=== PATIENT | female | born 1990 | race African-American/Black ===

== ENCOUNTER 2016-11-29 20:41 | Inpatient (IN) | payer OTHER ==
[~2016-11-29] VITALS: Ht 165.1 cm; Wt 69.4 kg
[2016-11-29] MEDS ORDERED: Lactated Ringer's 1,000 ML IV PRN (21:16)
[2016-11-29] MEDS ORDERED: Oxytocin 10 Unit/mL Inj IM PRN ×3 (21:20→22:55)
[2016-11-29] MEDS ORDERED: Ondansetron 2 mg/mL 2 mL Inj IVPUSH PRN (21:20)
[2016-11-29] MEDS ORDERED: Hemorrhage Kit, Post Partum XX ONE ×3 (21:20→22:55)
[2016-11-29] MEDS ORDERED: Methylergonovine 0.2 mg/mL Inj IM PRN ×2 (21:20→22:40)
[2016-11-29] MEDS ORDERED: Sodium Chloride LOK Flush 10 mL Syringe IVFLUSH PRN (21:20)
[2016-11-29] MEDS ORDERED: Penicillin G K Inj 5,000,000 UNITS in Dextrose 5% Minibag Plus 100 ML IV ONE (21:20)
[2016-11-29] MEDS ORDERED: Carboprost 250 mCg/mL Inj IM PRN ×2 (21:20→22:40)
[2016-11-29] MEDS ORDERED: Oxytocin 30 Units/500 mL LR 30 UNITS in IV Premix 1 EACH IV PRN ×2 (21:20→22:40)
--- NOTE | 2016-11-29 21:28 | PCM.HPOB ---
Subjective Date of Service: Nov 29, 2016 Referring Provider: Admitting Physician: Thanh Michaud MD Primary Care Physician: Miriam Toscano MD Attending Physician: Thanh Michaud MD Chief Complaint Active labor at 38 weeks and 4 day History of Present History of Present Illness Patient is a 26 y.o. F at 38 wk 4 days YADI 12/09/16 by LMP 03/04/16, US YADI 12/05/16 Presents to [facility] in active labor noted to be 5 cm, membranes intact GBS positive. complicated with sickle; cell trait, anemia in , fainting spells, GBS positive. Due to patient sabianist request female provider , patient acknowledged and understood this is not possible tonight and requests interaction kept to only as necessary. Upon admit patient noted to have contractions every 2-5 minutes with pain, membranes not ruptured, complained of active nausea. Patient denies fever, chills, shortness of breath, chest pain. Past Medical History Obstetrical History: first miscarriage 11/2012 Second 04/09/15 delivered at 39 weeks complicated by anemia in Gynecologic History: Last pap 2014 negative h/o BV no history of STI Medical History: Sickle cell trait anemia GBS postive Vit D defficiency chronic dizziness anxiety Surgical History: None reported Social History: lives with and child Hx Tobacco Use: No Hx Alcohol Use: No Hx Substance Use: No Past Family History Living Arrangement: with Family Review of Systems Constitutional: Y: Dizziness, Change of appitite, Chills, Fever Eyes: Denies: Blurred Vision, Conjunctive Inflammation, Double Vision ENT: Denies: Ear Pain Cardiovascular: Denies: Chest Pain, Edema, Orthopnea, Palpitations Respiratory: Denies: Cough, Cough with bloody sputum, Pleuritic Chest Pain Gastrointestinal: Reports: Nausea, Vomiting, Denies: Abdominal Pain, Epigastric pain, Heartburn Genitourinary: Denies: Dysuria, Hematuria Musculoskeletal: Denies: Redness, Swelling Skin/Breasts: Denies: Bruising, Discharge, Dry or Flakiness Skin: Denies: Bruising, Jaundice Neurological: Reports: Dizziness, Denies: Change in Speech, Confusion Psychologic: Denies: Agitation, Anxious, Apprehensive Medications Home medications vitamin vitamin D3 59154 unit per week Vitamin C Cephalexin for UIT in Ferrous sulfate 325 mg Promethazine 25 mg Allergy Coded Allergies: No Known Allergies (Unverified , 11/29/16) Exam Vital Signs HR 94 BP 132/76 Exam FHR 135 Category I tracing, moderate variability, acceptations present, reactive strip Vertex position reported by nursing Constitutional: Well-developed, Well-nourished HEENT: Atraumatic, PERRLA, EOMI Lungs: Clear to Auscultation, Normal Air Movement Heart: Regular Rate/Rhythm, Normal S1, Normal S2 Abdomen: Gravid (consistent with gestational age) Extremities: Pulses Palpable x4, Warm Neurological/Psychiatric: Alert, Oriented X3, Cooperative Labs/Diagnostics Ultra Sound US 11/14/16 FINDINGS: General: A single living intrauterine gestation is present. Presentation: Vertex. Placenta: Placental position is anterior towards maternal right, without previa. OB-EMBEDDED FIRMWARE ENGINEER Ultrasound Procedure Report Summary Fetus Summary Estimated Gestational Age from first dating scan: 37 weeks, 0 days Estimated Gestational Age from present scan: 36 weeks, 1 day Estimated Weight (EFW): 2805 g EFW percentile rank: 28 % Heart Rate: 129 bpm Findings(Amniotic Sac) Amniotic Fluid Index: 18.60 cm Biometry BiometryGroup Biparietal Diameter (Mean): 8.80 cm Gestational Age (BPD): 35 weeks, 4 days Head Circumference (Mean): 32.61 cm Gestational Age (HC): 37 weeks, 0 days Abdominal Circumference (Mean): 31.51 cm Gestational Age (AC): 35 weeks, 3 days Femur Length (Mean): 7.15 cm Gestational Age (FL): 36 weeks, 4 days Pelvis and Uterus Cervix Length: Not sufficiently well seen to measure Measurement variability in biometric dating: +/- 7 days from 14 weeks to 15 weeks 6 days gestation, +/- 10 days from 16 weeks to 21 weeks 6 days gestation, +/- 2 weeks from 22 weeks to 27 weeks 6 days gestation, +/- 3 weeks for 28 weeks gestation or later. Other: Not applicable. IMPRESSION: 1. growth at the 20th percentile, 2805 g. 2. Amniotic fluid index 18.6 cm. Dictated by: Albaro Streeter M.D. on 11/14/2016 at 11:30 Approved by: Albaro Streeter M.D. on 11/14/2016 at 11:32 Lab/Diagnostic Information labs A+ Ab screen negative hct 31.7 hgb 10.2 HbS 31.1% HbF <1.0% PLT 249 Cr 0.6 ALKphois 144 AST/ALT TSH 1.39 Vit D 26 Iron 556 %sat 97 Ferritin 32 Folate 21 GGT negative HIV negative RPR non reactive HSV neg Hep B neg Hep C not done G/C negative Rubella immune Maternal Blood Type: A Hx Rho(D) Immune Globulin: No Group B Strep Results: Positive Previous with GBS: No Rubella: Immune OB Intrapartum Assessment/Plan Assessment Patient is a 26 y.o. F at 38 wk 4 days YADI 12/09/16 by LMP 03/04/16, US YADI 12/05/16 Presents to [facility] in active labor noted to be 5 cm, membranes intact GBS positive. complicated with sickle; cell trait, anemia in Problems: (1) Active labor at term Plan: Admit to [facility] start IV IVF LR @ 125 mls/hr IV Fentanyl 50 mcg for pain, narcan available, monitor vitals Vitals Q4 GBS positive start PCN 82890 units loading 3000 units Q4 Repeat CBC, CMP, in morning no Hep C on file, ordered Hep C Status: Acute Attending Statement The patient was seen and examined together with Dr. Luis A Abel on 11/29/2016 and I agree with the history, exam and plan as outlined in the note above. LUIS A ABEL DO Nov 29, 2016 21:28 Thanh Michaud MD Dec 09, 2016 13:52
[2016-11-29 21:29] LABS: Mean Corpuscular Volume 74.6 fL (81-100)
[2016-11-29] MEDS ORDERED: fentaNYL-PF 50 mCg/mL 2 mL Inj IVPUSH PRN (21:45)
[2016-11-29] MEDS ORDERED: Lactated Ringer's 1,000 ML IV SCH (22:39)
[2016-11-29] MEDS ORDERED: Witch Hazel-Glycerin Pads TOPICAL PRN (22:40)
[2016-11-29] MEDS ORDERED: Benzocaine (Dermoplast) 20% 60 Gm Spray TOPICAL PRN (22:40)
[2016-11-29] MEDS ORDERED: LANOlin HPA 7 Gm Ointment TOPICAL PRN (22:40)
[2016-11-29] MEDS ORDERED: oxyCODONE-Acetamin 5-325 mg Tablet PO PRN (22:40)
[2016-11-29] MEDS ORDERED: Measles-Mumps-Rubella Vaccine 0.5 mL Inj SUBQ ONE (22:40)
[2016-11-29] MEDS ORDERED: HYDROcodone-APAP 5-325 mg Tablet PO PRN (22:55)
--- NOTE | 2016-11-29 23:15 | PCM.OBVAG ---
Vaginal Delivery Date of Service Nov 29, 2016 Pre Operative Diagnosis Pre Operative Diagnosis Active Labor Post Operative Diagnosis Post Operative Diagnosis S/p at term Procedure Procedure: Obstetical Procedure: Normal Spontaneous Vaginal Delivery Director Cost/Oracle So[employer] Developer Provider and [employer] Soa Developer: Dr. Ga Michaud [employer] Developer Dr. Luis A Abel PGY-2 Indication for Procedure Indication for Procedure Active labor Induction: SROM Findings Findings: Superficial hemostatic laceration to labia and perineum Three vessel chord intact placenta Obstetrical Findings: [place] (Male), Presentation (OCTAVIO), 1 minute (9), 5 minutes (9) Procedure Details Procedure Details Patient is a 26 y.o. F at 38+5 weeks presents to [facility] for active labor, GBS positive once dose PCN prior to delivery Called to patient room. Patient examined noted to be fully dilated, station +1, SROM, with painful contractions, Category I tracing. Patient began to push. At fourth cycle of pushing fetus crowned and position noted to be OCTAVIO. Neck examined and loose nuchal chord x1 noted. Chord slipped over head without difficulty and patient instructed to push. Anterior shoulder delivered without difficulty, no dystocia Posterior shoulder delivered without difficulty Body delivered without difficulty and baby transferred to mother for skin to skin contact noted to have good tone, pink color, strong cry, at one minute , five minutes Delayed chord clamping at 1 minute, Intact placenta delivered without compilation, placenta noted to have three vessel chord, chord blood sent for pathology Perineum inspected superficial hemostatic laceration to labia noted EBl 500 cc Specimen Specimens: Cord gas/pH Post Procedure Plan Attending Statement I was present for the entire procedure and agree with the above documentation. LUIS A ABEL DO Nov 29, 2016 23:15 Thanh Michaud MD Dec 09, 2016 13:53
[2016-11-30] MEDS ORDERED: Penicillin G K Inj 3,000,000 UNITS in IV Premix 1 EACH IV SCH (04:30)
[2016-11-30 07:29] LABS: Mean Corpuscular Hemoglobin 25.1 pg (27.0-35.0); Mean Corpuscular Volume 75.2 fL (81-100)
[2016-11-30] MEDS ORDERED: Ascorbic Acid 500 mg Tablet PO SCH (08:00)
--- NOTE | 2016-11-30 14:32 | PCM.DIOB ---
Obstetrical Disch Instruction Date of Service: Nov 30, 2016 Dates of Hospitalization Date of Hospital Admission Nov 29, 2016 at 20:44 Providers Admitting Physician: Miriam Toscano MD Primary Care Physician: Miriam Toscano MD Attending Physician: Miriam Toscano MD Discharge Diagnosis Discharge Diagnosis PPD#1 S/P . Anemia/ Sickle cell trait. GBS bacteruria. Problems: (1) Active labor at term Status: Acute Diet Discharge Diet: No restrictions Activity Discharge Activity-General: Pelvic Rest for 6 weeks, No lifting >10 pounds for 4-6 weeks Dressing and Incisional Care Hygiene: May shower Follow Up Plan Follow-up Provider (F9): Miriam Toscano MD Follow-up appointment: Weeks (2) Call your provider for: Fever or Chills, Shortness of breath, Heavy vaginal bleeding, Other (excessive pain not controlled with pain medications. Chest pain.) Jovita Reveles MD Nov 30, 2016 14:32
[2016-11-30] MEDS ORDERED: IBUP-1827 PO (14:34)
[2016-11-30] MEDS ORDERED: DOCU-41 PO (14:34)
[2016-11-30] MEDS ORDERED: FERR-74 PO (14:34)
[2016-11-30] MEDS ORDERED: Ascorbic Acid PO (14:34)
--- NOTE | 2016-11-30 14:55 | DIS ---
[address] [address] DISCHARGE SUMMARY PATIENT: AKIL DOTSON : 1990 MR#: [id number] ADMIT: 11/29/2016 JOB ID: [id number] DIS: 11/30/2016 REASON FOR ADMISSION: A 26-year-old, 3, para 1-0-1-1, at 38 weeks and 4 days, in active labor. Discharged on November 30, 2016. DISCHARGE DIAGNOSES: 1. day #1, status post spontaneous vaginal delivery. 3, para 2-0-1-2. 2. Anemia with sickle cell trait. 3. Group B Streptococcus bacteriuria. HOSPITAL COURSE: For further details, please refer to the fully dictated notes. On the day of discharge, the patient had no complaints. Voiding, ambulating, tolerating p.o. intake and having some issues with . Will get consult. PHYSICAL EXAMINATION: Vital signs are blood pressure is 110/71, respirations are 16, pulse is 88, temperature 36.7 degrees centigrade. Heart is regular rate and rhythm. Positive S1, S2. Lungs clear to auscultation bilaterally. Abdomen firm. Uterine fundus palpated at 2 cm below the umbilicus. Nondistended abdomen. Nontender uterine fundus. Positive bowel sounds. Perineum: No active bleeding. Lower extremities: No calf tenderness appreciated bilaterally. LABORATORY DATA: H and H on day #1 is 10.2 and 30.6. DISCHARGE PLAN: The patient will be discharged home in a stable condition after consult. Will follow up with Dr. Reveles in the office in two weeks. Instructed to have nothing in the vagina for six weeks. No heavy lifting more than baby's weight. Instructed to call for fever, chills, severe abdominal pain uncontrolled with medication, heavy vaginal bleeding, headache, shortness of breath, chest pain, or any other concerning symptoms. DISCHARGE MEDICATIONS: 1. Ibuprofen 600 mg every 6 hours as needed. 2. Ferrous sulfate 325 mg twice daily. 3. Vitamin C 500 mg twice daily. 4. Colace 100 mg twice daily. The patient understood the discharge instructions. She will comply with her discharge plan.
[2016-11-30 15:53] VITALS: BP 110/71; PULSE 88; RESP 16
== END 2016-11-30 18:40 | disposition home or self-care (01) | DRG 775 ==
LOC: FBCO 20:41 → FBC 20:44
PROVIDERS: ADMIT Obstetrics & Gynecology; ATTEND Obstetrics & Gynecology
PROC: 10E0XZZ Delivery of Products of Conception, External Approach (ICD-10-PCS; principal; 2016-11-29)
DX: O99.02 Anemia complicating childbirth (principal); E55.9 Vitamin D deficiency, unspecified; D57.3 Sickle-cell trait; O99.824 Streptococcus B carrier state complicating childbirth; O75.89 Other specified complications of labor and delivery; O69.81X0 Labor and delivery complicated by cord around neck, without compression, not applicable or unspecified; Z37.0 Single live birth; Z3A.38 38 weeks gestation of pregnancy